=== PATIENT | female | born 1960 | race Caucasian/White ===

== ENCOUNTER 2023-05-27 08:14 | Inpatient (IN) | payer BC, MEDICARE, SELFPAY ==
[2023-05-27] MEDS ORDERED: Ondansetron PF 4 MG/2 ML Vial ONE (08:22)
[2023-05-27 08:44] LABS: #Basophils 0.1 10x3/uL (0.0-0.2); #Eosinphils 0.2 10x3/uL (0.0-0.5); #Monocytes 1.7 10x3/uL (0.0-1.1); #Neutrophils 9.7 10x3/uL (1.5-8.4); %Basophils 0.6 % (0.0-2.0); %Eosinophils 1.4 % (0.0-6.0); %Lymphocytes 24.2 % (18.0-47.0); %Monocytes 10.9 % (0.0-10.0); %Neutrophils 61.4 % (40.0-75.0); Hematocrit 37.5 % (34.9-44.5); Hemoglobin 11.9 g/dL (12.0-15.5); Mean Corpuscular HGB CONC 31.7 g/dL (32.0-36.0); Mean Corpuscular Hemoglobin 28.3 pg (27.0-33.0); Mean Corpuscular Volume 89.1 fl (81.6-98.3); Mean Platelet Volume 10.3 fl (7.4-10.4); Platelet Count 317 10x3/uL (150-450); RBC Distribution Width 14.2 % (11.5-14.5); Red Blood Cell (RBC) Count 4.21 10x6/uL (3.90-5.03); White Blood Cell (WBC) Count 15.8 10x3/uL (3.5-10.5)
[2023-05-27 08:54] LABS: PTT 21.6 sec (22.0-33.0); Prothrombin Time 10.9 sec (9.5-12.1)
[2023-05-27 09:04] LABS: ALT (SGPT) 21 U/L (8-55); AST (SGOT) 17 U/L (5-34); Albumin 3.6 g/dL (3.4-4.8); Alkaline Phosphatase 94 U/L (40-110); Anion Gap 14 mmol/L (10-20); BUN (Urea Nitrogen) 32 mg/dL (9.8-20.1); Bilirubin, Total 0.3 mg/dL (0.2-1.2); Calc. Creatinine Clearance 0 mL/min (70-130); Carbon Dioxide 21 mmol/L (23-31); Chloride 108 mmol/L (98-107); Estimated GFR 45; Globulin 2.1 g/dL (2.4-3.5); Glucose 120 mg/dL (80-115); Magnesium 2.2 mg/dL (1.6-2.6); Potassium 3.8 mmol/L (3.5-5.1); Protein, Total 5.7 g/dL (5.8-8.1); Sodium 139 mmol/L (136-145)
[2023-05-27 09:07] LABS: Troponin I Less than 0.010 ng/mL (< 0.028)
[2023-05-27 11:33] LABS: Troponin I Less than 0.010 ng/mL (< 0.028)
[2023-05-27 12:04] LABS: Bilirubin Neg (Negative); Blood, Urine 10 (Negative); Clarity Clear (Clear); Glucose, Urine (Dipstick) Normal (Negative); Ketone, Urine Negative (Negative); Leukocyte 100 (Negative); Nitrite Negative (Negative); Protein, Urine (Dipstick) 15 mg/dl (Neg-Trace); Urobilinogen Normal mg/dL (Less than 2)
[2023-05-27 12:15] LABS: Bacteria/HPF 1+ HPF (None Seen); CAUTI Indications for Culture Alt mental st,lethar; RBC/HPF 0-3 HPF (0-3); Squamous Epithelial Greater than 50 HPF (0-3)
[2023-05-27] MEDS ORDERED: Ondansetron PF 4 MG/2 ML Vial IVP PRN (12:24)
[2023-05-27] MEDS ORDERED: Ondansetron ODT 4 MG TAB PO PRN (12:24)
[2023-05-27 12:44] LABS: SARS-CoV-2 NAA Rapid Test Not Detected (NotDetected)
[2023-05-27] MEDS ORDERED: Iopamidol 300 61% 100 ML VIAL FS ONE (14:13)
[2023-05-27 16:15] VITALS: BMI 33.0
[2023-05-27] MEDS: Sodium Chloride 0.9% 1,000 ML IV SCH (17:30)
[2023-05-27] MEDS ORDERED: Atorvastatin Calcium 20 MG TAB PO SCH (21:45)
[2023-05-27] MEDS ORDERED: Benzonatate 100 MG CAP PO PRN (22:09)
[2023-05-27] MEDS ORDERED: Meclizine HCl 12.5 MG TAB PO SCH (22:15)
[2023-05-28] MEDS: Sodium Chloride 0.9% 1,000 ML IV SCH ×2 (00:37→14:18)
[2023-05-28 04:00] LABS: #Basophils 0.1 10x3/uL (0.0-0.2); #Eosinphils 0.2 10x3/uL (0.0-0.5); #Neutrophils 6.5 10x3/uL (1.5-8.4); %Basophils 0.6 % (0.0-2.0); %Eosinophils 2.3 % (0.0-6.0); %Lymphocytes 20.2 % (18.0-47.0); %Monocytes 10.1 % (0.0-10.0); %Neutrophils 66.2 % (40.0-75.0); Hematocrit 38.2 % (34.9-44.5); Hemoglobin 11.9 g/dL (12.0-15.5); Mean Corpuscular HGB CONC 31.2 g/dL (32.0-36.0); Mean Corpuscular Hemoglobin 28.5 pg (27.0-33.0); Mean Corpuscular Volume 91.6 fl (81.6-98.3); Mean Platelet Volume 10.8 fl (7.4-10.4); Platelet Count 255 10x3/uL (150-450); RBC Distribution Width 14.5 % (11.5-14.5); Red Blood Cell (RBC) Count 4.17 10x6/uL (3.90-5.03); White Blood Cell (WBC) Count 9.7 10x3/uL (3.5-10.5)
[2023-05-28 04:12] LABS: Anion Gap 10 mmol/L (10-20); BUN (Urea Nitrogen) 20 mg/dL (9.8-20.1); Calc. Creatinine Clearance 86 mL/min (70-130); Calcium 8.2 mg/dL (7.8-10.44); Carbon Dioxide 23 mmol/L (23-31); Chloride 108 mmol/L (98-107); Estimated GFR 68; Glucose 90 mg/dL (80-115); Sodium 137 mmol/L (136-145)
[2023-05-28] MEDS: Levothyroxine Sodium 50 MCG TAB PO SCH (05:58)
[2023-05-28] MEDS: Acetaminophen 325 MG TAB PO PRN (06:32)
[2023-05-28] MEDS: Valsartan 80 MG TAB PO SCH (09:36)
[2023-05-28] MEDS: Hydrochlorothiazide 25 MG TAB PO SCH (09:36)
[2023-05-28] MEDS ORDERED: Guaifenesin DM 100-10/5 ML UDCUP PO PRN (11:18)
[2023-05-28] MEDS ORDERED: Benzonatate 100 MG CAP PO PRN (11:45)
[2023-05-28] MEDS ORDERED: Ipratropium/Albuterol 3 ML NEB NEB PRN (12:09)
[2023-05-28] MEDS: LevoFLOXacin 500 mg/D5W 500 MG in Premix Bag 1 BAG IVPB SCH (12:22)
[2023-05-28] MEDS: Ipratropium/Albuterol 3 ML NEB NEB SCH ×2 (13:40→20:10)
[2023-05-28] MEDS: Atorvastatin Calcium 20 MG TAB PO SCH (21:00)
[2023-05-29] MEDS: Ipratropium/Albuterol 3 ML NEB NEB SCH ×4 (00:48→14:15)
[2023-05-29 05:41] LABS: #Basophils 0.1 10x3/uL (0.0-0.2); #Eosinphils 0.2 10x3/uL (0.0-0.5); #Neutrophils 5.3 10x3/uL (1.5-8.4); %Basophils 0.7 % (0.0-2.0); %Eosinophils 2.9 % (0.0-6.0); %Lymphocytes 17.8 % (18.0-47.0); %Monocytes 12.1 % (0.0-10.0); %Neutrophils 65.8 % (40.0-75.0); Hematocrit 39.3 % (34.9-44.5); Hemoglobin 12.3 g/dL (12.0-15.5); Mean Corpuscular HGB CONC 31.3 g/dL (32.0-36.0); Mean Corpuscular Hemoglobin 28.7 pg (27.0-33.0); Mean Corpuscular Volume 91.6 fl (81.6-98.3); Mean Platelet Volume 10.5 fl (7.4-10.4); Platelet Count 233 10x3/uL (150-450); RBC Distribution Width 14.5 % (11.5-14.5); Red Blood Cell (RBC) Count 4.29 10x6/uL (3.90-5.03)
[2023-05-29 05:50] LABS: Anion Gap 11 mmol/L (10-20); BUN (Urea Nitrogen) 16 mg/dL (9.8-20.1); Calc. Creatinine Clearance 76 mL/min (70-130); Calcium 8.9 mg/dL (7.8-10.44); Carbon Dioxide 25 mmol/L (23-31); Chloride 109 mmol/L (98-107); Estimated GFR 59; Glucose 94 mg/dL (80-115); Potassium 4.7 mmol/L (3.5-5.1); Sodium 140 mmol/L (136-145)
[2023-05-29] MEDS: Levothyroxine Sodium 50 MCG TAB PO SCH (05:54)
[2023-05-29] MEDS: Sodium Chloride 0.9% 1,000 ML IV SCH ×2 (05:55→17:46)
[2023-05-29] MEDS: Acetaminophen 325 MG TAB PO PRN (06:12)
[2023-05-29] MEDS: Hydrochlorothiazide 25 MG TAB PO SCH (09:07)
[2023-05-29] MEDS: Valsartan 80 MG TAB PO SCH (09:07)
[2023-05-29] MEDS: Meclizine HCl 25 MG TAB PO SCH ×2 (10:30→17:46)
[2023-05-29] MEDS: LevoFLOXacin 500 mg/D5W 500 MG in Premix Bag 1 BAG IVPB SCH (12:00)
[2023-05-29] MEDS: Atorvastatin Calcium 20 MG TAB PO SCH (20:29)
[2023-05-30] MEDS: Ipratropium/Albuterol 3 ML NEB NEB SCH ×2 (00:40→08:00)
[2023-05-30] MEDS: Meclizine HCl 25 MG TAB PO SCH ×2 (02:10→09:41)
[2023-05-30 05:58] LABS: #Basophils 0.1 10x3/uL (0.0-0.2); #Eosinphils 0.2 10x3/uL (0.0-0.5); #Monocytes 1.1 10x3/uL (0.0-1.1); #Neutrophils 5.5 10x3/uL (1.5-8.4); %Basophils 0.6 % (0.0-2.0); %Eosinophils 2.8 % (0.0-6.0); %Monocytes 12.1 % (0.0-10.0); %Neutrophils 63.7 % (40.0-75.0); Hematocrit 40.7 % (34.9-44.5); Hemoglobin 12.8 g/dL (12.0-15.5); Mean Corpuscular HGB CONC 31.4 g/dL (32.0-36.0); Mean Corpuscular Hemoglobin 28.1 pg (27.0-33.0); Mean Corpuscular Volume 89.3 fl (81.6-98.3); Mean Platelet Volume 10.5 fl (7.4-10.4); Platelet Count 270 10x3/uL (150-450); RBC Distribution Width 14.6 % (11.5-14.5); Red Blood Cell (RBC) Count 4.56 10x6/uL (3.90-5.03); White Blood Cell (WBC) Count 8.7 10x3/uL (3.5-10.5)
[2023-05-30 06:13] LABS: Anion Gap 12 mmol/L (10-20); BUN (Urea Nitrogen) 14 mg/dL (9.8-20.1); Calc. Creatinine Clearance 83 mL/min (70-130); Calcium 9.2 mg/dL (7.8-10.44); Carbon Dioxide 25 mmol/L (23-31); Chloride 107 mmol/L (98-107); Estimated GFR 66; Glucose 92 mg/dL (80-115); Potassium 4.3 mmol/L (3.5-5.1); Sodium 140 mmol/L (136-145)
[2023-05-30] MEDS: Levothyroxine Sodium 50 MCG TAB PO SCH (06:25)
[2023-05-30] MEDS: Sodium Chloride 0.9% 1,000 ML IV SCH (07:49)
[2023-05-30 08:16] VITALS: BP 139/67; TEMP 98.5
[2023-05-30] MEDS: Valsartan 80 MG TAB PO SCH (09:40)
[2023-05-30] MEDS: Hydrochlorothiazide 25 MG TAB PO SCH (09:41)
== END 2023-05-30 10:50 | disposition home or self-care (01) | DRG 312 ==
LOC: CSHERS 08:14 → CSHTELE 12:12 → OBSVTOIN 05-29 10:30
PROVIDERS: ADMIT Internal Medicine; ATTEND Family Medicine
DX: R55 Syncope and collapse (principal); N39.0 Urinary tract infection, site not specified; E03.9 Hypothyroidism, unspecified; I49.5 Sick sinus syndrome; J20.9 Acute bronchitis, unspecified; E78.5 Hyperlipidemia, unspecified; I10 Essential (primary) hypertension; M32.9 Systemic lupus erythematosus, unspecified; D72.829 Elevated white blood cell count, unspecified; K21.9 Gastro-esophageal reflux disease without esophagitis; Z20.822 Contact with and (suspected) exposure to COVID-19; Z96.641 Presence of right artificial hip joint; Z88.0 Allergy status to penicillin; Z79.890 Hormone replacement therapy; Z79.899 Other long term (current) drug therapy; Z98.890 Other specified postprocedural states; Z90.710 Acquired absence of both cervix and uterus
CPT/HCPCS: 36415; 36416; 70450; 71046; 71275; 72125; 74174; 80048; 80053; 81001; 83605; 83735; 84145; 84443; 84484; 85025; 85610; 85730; 87040; 89220; 93005; 93010; 93306; 93880; 94640; 94760; 96375; G0378; J1956; J2405; J7050; J7620; Q9967

== ENCOUNTER 2024-02-16 08:58 | Outpatient (CLI) | payer OTHER, MEDICARE | END 2024-02-16 08:59 | disposition home or self-care (01) | LOC: CSHMAMMO 08:58 | PROVIDERS: ATTEND Family Medicine | DX: Z12.31 Encounter for screening mammogram for malignant neoplasm of breast (principal); Z80.3 Family history of malignant neoplasm of breast | CPT/HCPCS: 77063; 77067 ==